=== PATIENT | female | born 1980 | race Caucasian/White ===

== ENCOUNTER 2018-03-17 07:50 | Inpatient (IN) | payer OTHER ==
[~2018-03-17] VITALS: Ht 154.9 cm; Wt 74.4 kg
[2018-03-17] MEDS ORDERED: OXYTOCIN 30 UNITS/LACT RINGERS 500 ML IV ONE ×3 (08:00→08:44)
[2018-03-17] MEDS ORDERED: RINGERS SOLUTION,LACTATED 1,000 ML IV ONE (08:00)
[2018-03-17] MEDS ORDERED: OXYTOCIN 10 UNITS/ML VIAL IM ONE ×3 (08:01→09:00)
[2018-03-17] MEDS ORDERED: LIDOCAINE/PF 1% 30 ML VIAL ONE (08:09)
[2018-03-17] MEDS ORDERED: BENZOCAINE 20%/MENTHOL 56 GM SPRAY CANISTER TP PRN (08:45)
[2018-03-17] MEDS ORDERED: LANOLIN 7 GM OINTMENT TP PRN (08:45)
[2018-03-17] MEDS ORDERED: OxyCODONE HCL/ACETAMINOPHEN 5-325 MG TABLET PO PRN ×2 (08:45)
[2018-03-17] MEDS ORDERED: METHYLERGONOVINE MALEATE 0.2 MG TABLET PO PRN (08:45)
[2018-03-17] MEDS ORDERED: GLYCERIN/WITCH HAZEL LEAF 40 PADS JAR TP PRN (08:45)
[2018-03-17] MEDS ORDERED: LIDOCAINE/PF 1% 30 ML VIAL INJ PRN (08:45)
[2018-03-17] MEDS ORDERED: MAGNESIUM HYDROXIDE SUSPENSION 30 ML UDCUP PO PRN (08:45)
[2018-03-17] MEDS ORDERED: RINGERS SOLUTION,LACTATED 1,000 ML IV PRN (08:46)
[2018-03-17] MEDS ORDERED: RINGERS SOLUTION,LACTATED 1,000 ML IV SCH (08:46)
[2018-03-17] MEDS ORDERED: METOCLOPRAMIDE HCL 5 MG/ML 2 ML VIAL IVP PRN (09:00)
[2018-03-17] MEDS ORDERED: CITRIC ACID/SODIUM CITRATE 30 ML SOLUTION UDCUP PO PRN (09:00)
[2018-03-17 09:21] LABS: BASOPHILS % (AUTO) 0.4 % (0.0-2.0); EOSINOPHILS % (AUTO) 0.4 % (1.0-6.0); HEMATOCRIT 35.4 % (36-46); LYMPHOCYTES # (AUTO) 0.8 K/uL (1.0-4.8); MEAN CORPUSCULAR HGB CONC 33.9 G/dL (31.0-37.0); MEAN CORPUSCULAR VOLUME 95 fL (80-100); MONOCYTES # (AUTO) 0.7 K/uL (0.1-1.0); MONOCYTES % (AUTO) 5.4 % (2.0-9.0); NEUTROPHILS # (AUTO) 10.9 K/uL (1.8-7.7); PLATELET COUNT (AUTO)-OB 241 K/uL (150-450); RED BLOOD CELL COUNT(AUTO) 3.75 MIL/uL (4.00-5.20)
[2018-03-17 09:22] LABS: NEUTROPHILS % (AUTO) 87.8 % (40.0-70.0)
[2018-03-17 11:19] VITALS: BP 144/80
[2018-03-17] MEDS: IBUPROFEN 800 MG TABLET PO PRN ×2 (11:29→17:14)
[2018-03-17] MEDS ORDERED: PNEUMOCOCCAL VACCINE POLYVALENT 0.5 ML VIAL [PPSV23] IM ONE (11:45)
[2018-03-17] MEDS ORDERED: OXYGEN THERAPY IH SCH (20:00)
[2018-03-18] MEDS: IBUPROFEN 800 MG TABLET PO PRN ×2 (01:29→08:19)
[2018-03-18 06:47] LABS: BASOPHILS % (AUTO) 0.4 % (0.0-2.0); EOSINOPHILS % (AUTO) 1.8 % (1.0-6.0); HEMATOCRIT 30.9 % (36-46); HEMOGLOBIN 10.7 g/dL (12.0-16.0); LYMPHOCYTES # (AUTO) 2.2 K/uL (1.0-4.8); LYMPHOCYTES % (AUTO) 21.3 % (22.0-44.0); MEAN CORPUSCULAR HEMOGLOBIN 32.9 pg (26.0-34.0); MEAN CORPUSCULAR HGB CONC 34.7 G/dL (31.0-37.0); MEAN CORPUSCULAR VOLUME 95 fL (80-100); MONOCYTES # (AUTO) 1.1 K/uL (0.1-1.0); MONOCYTES % (AUTO) 10.6 % (2.0-9.0); NEUTROPHILS # (AUTO) 6.9 K/uL (1.8-7.7); NEUTROPHILS % (AUTO) 65.9 % (40.0-70.0); PLATELET COUNT (AUTO)-OB 232 K/uL (150-450); RED BLOOD CELL COUNT(AUTO) 3.25 MIL/uL (4.00-5.20); RED CELL DISTRIBUTION WIDTH 14.1 % (11.5-14.5)
[2018-03-18] MEDS ORDERED: ACET-66 PO (09:38)
[2018-03-18] MEDS ORDERED: IBUP-2070 PO (09:40)
[2018-03-18] MEDS ORDERED: DSS100 PO (09:42)
== END 2018-03-18 14:45 | disposition home or self-care (01) | DRG 807 ==
LOC: 4S 07:50 → OBSVTOIN 07:50
PROVIDERS: ADMIT Obstetrics & Gynecology; ATTEND Obstetrics & Gynecology
PROC: 10E0XZZ Delivery of Products of Conception, External Approach (ICD-10-PCS; principal; 2018-03-17)
PROC: 10907ZC Drainage of Amniotic Fluid, Therapeutic from Products of Conception, Via Natural or Artificial Opening (ICD-10-PCS; 2018-03-17)
PROC: 0HQ9XZZ Repair Perineum Skin, External Approach (ICD-10-PCS; 2018-03-17)
DX: O69.81X0 Labor and delivery complicated by cord around neck, without compression, not applicable or unspecified (principal); Z37.0 Single live birth; O09.513 Supervision of elderly primigravida, third trimester; Z3A.38 38 weeks gestation of pregnancy; O70.0 First degree perineal laceration during delivery
CPT/HCPCS: 86850; 86900; 86901; J2590; J3490; J7120